=== PATIENT | male | born 1970 | race Asian ===

== ENCOUNTER 2017-02-12 14:25 | Outpatient (CLI) | payer BC ==
[2017-02-12 14:56] LABS: ALT (SGPT) 22 U/L (0-55); AST (SGOT) 24 U/L (5-34); Albumin 4.7 g/dL (3.5-5.0); Alkaline Phosphatase 63 U/L (40-150); Anion Gap 12 mmol/L (10-20); BUN (Urea Nitrogen) 16 mg/dL (8.9-20.6); Bilirubin, Total 1.1 mg/dL (0.2-1.2); Calc. Creatinine Clearance 0 mL/min (70-130); Calcium 9.5 mg/dL (7.8-10.44); Carbon Dioxide 26 mmol/L (22-29); Chloride 106 mmol/L (98-107); Estimated GFR-MDRD Greater than 90; Globulin 2.9 g/dL (2.4-3.5); Glucose 101 mg/dL (70-105); Potassium 4.5 mmol/L (3.5-5.1); Protein, Total 7.6 g/dL (6.0-8.3); Sodium 139 mmol/L (136-145)
[2017-02-12 14:57] LABS: #Basophils 0.1 thou/uL (0.0-0.2); #Eosinphils 0.1 thou/uL (0.0-0.7); #Lymphocytes 1.2 thou/uL (1.20-3.40); #Monocytes 0.5 thou/uL (0.11-0.59); #Neutrophils 4.8 thou/uL (1.40-6.50); %Basophils 0.8 % (0.0-1.0); %Eosinophils 0.9 % (0.0-10.0); %Lymphocytes 18.4 % (21.0-51.0); %Monocytes 6.8 % (0.0-10.0); Hemoglobin 14.6 g/dL (14.0-18.0); Mean Corpuscular HGB CONC 33.5 g/dL (32.0-36.0); Mean Corpuscular Volume 89.6 fl (80.0-94.0); Mean Platelet Volume 5.8 fL (7.4-10.4); Platelet Count 266 thou/uL (130-400); RBC Distribution Width 10.8 % (11.5-14.5); Red Blood Cell (RBC) Count 4.86 mill/uL (4.70-6.10); White Blood Cell (WBC) Count 6.6 thou/uL (4.8-10.8)
== END 2017-02-12 14:26 | disposition home or self-care (01) ==
LOC: HPCALD 14:25
PROVIDERS: ATTEND Family Medicine
DX: Z00.00 Encounter for general adult medical examination without abnormal findings (principal)
CPT/HCPCS: 36415; 80053; 85025

== ENCOUNTER 2017-02-12 14:43 | Outpatient (CLI) | payer BC ==
--- NOTE | 2017-02-12 21:45 | RAD ---
CHEST TWO VIEWS 02/12/17 Comparison is made with a 05/13/16 study. The heart is normal in size and the lungs are clear. No infiltrate or effusion was seen. Hazy area i s seen in the left base earlier has cleared. The mediastinum appears normal and the trachea is midli ne. IMPRESSION: No acute thoracic findings. POS: HOME
== END 2017-02-12 14:44 | disposition home or self-care (01) ==
LOC: BURRAD 14:43
PROVIDERS: ATTEND Family Medicine
DX: R76.11 Nonspecific reaction to tuberculin skin test without active tuberculosis (principal)
CPT/HCPCS: 71020

== ENCOUNTER 2020-11-08 12:33 | Outpatient (CLI) | payer BC ==
--- NOTE | 2020-11-08 17:50 | RAD ---
CHEST TWO VIEWS: 11/08/20 Comparison is made with the 02/12/17 study. The heart is normal in size and the lungs are clear. There is no sign of active pulmonary disease. T here is no mediastinal abnormality appreciated. No effusions or cavities were seen. IMPRESSION: No acute thoracic finding. POS: HOME
== END 2020-11-08 12:34 | disposition home or self-care (01) ==
LOC: BURRAD 12:33
PROVIDERS: ATTEND Family Medicine
DX: R76.11 Nonspecific reaction to tuberculin skin test without active tuberculosis (principal)
CPT/HCPCS: 71046